=== PATIENT | female | born 1980 | race Caucasian/White ===

== ENCOUNTER 2024-11-08 18:40 | Emergency (ER) | payer OTHER, SELFPAY ==
[2024-11-08 18:43] VITALS: BP 152/99
[2024-11-08 19:17] LABS: % Basophils 0.7 % (0-2); % Eosinophils 3.6 % (0-6); % Immature Granulocytes 0.4 % (0-0.5); % Monocytes 9.5 % (1.7-9.3); % Neutrophils 54.8 % (42.2-75.2); Absolute Basophils 0.1 10^3/uL (0-0.2); Absolute Eosinophils 0.3 10^3/uL (0-0.7); Absolute Lymphocytes 2.6 10^3/uL (1.2-3.4); Absolute Monocytes 0.8 10^3/uL (0.1-0.6); Absolute Neutrophils 4.7 10^3/uL (1.4-6.5); Hematocrit 42.5 % (37.0-47.0); Hemoglobin 14.5 g/dL (12.0-16.0); Mean Corp Hgb Conc. 34.1 g/dL (33.0-37.0); Mean Corpuscular Hgb 29.4 pg (27.0-31.0); Mean Corpuscular Volume 86.2 fL (81.0-99.0); Mean Platelet Volume 9.8 fL (7.4-10.4); Nucleated Red Blood Cells % 0 %; Platelet Count 229 10^3/uL (130-400); Red Blood Cell Count 4.93 10^6/uL (4.20-5.40); White Blood Cell Count 8.5 10^3/uL (4.8-10.8)
[2024-11-08 19:30] LABS: ALT (SGPT) 31 U/L (0-35); AST (SGOT) 24 U/L (14-36); Albumin 4.7 g/dl (3.5-5.0); Alkaline Phosphatase 69 U/L (38-126); Blood Urea Nitrogen 14 mg/dl (7-17); Calcium 9.8 mg/dl (8.4-10.2); Carbon Dioxide 22 mmol/L (22-30); Chloride 107 mmol/L (98-107); Glucose 98 mg/dl (70-99); Potassium 4.7 mmol/L (3.5-5.1); Sodium 137 mmol/L (135-145); Total Bilirubin 0.7 mg/dl (0.2-1.3); Total Protein 7.3 g/dl (6.3-8.2); eGFR > 60.00
[2024-11-08 19:47] LABS: Lipase 64 U/L (23-300)
[2024-11-08 21:54] VITALS: BP 148/76
[2024-11-08 22:27] VITALS: BMI 39.2
[2024-11-08 22:44] LABS: Urine Albumin Negative (Neg - Trace); Urine Bilirubin Negative (Negative); Urine Character Clear (Clear); Urine Color Yellow; Urine Glucose Negative (Negative); Urine Ketone Negative (Negative); Urine Leukocyte Negative (Negative); Urine Nitrite Negative (Negative); Urine Occult Blood Negative (Negative); Urine Specific Gravity 1.015 (<1.030); Urine Urobilinogen Negative (Neg - 1+)
[2024-11-08 22:45] LABS: HCG, Urine Qualitative Screen Negative
[2024-11-08 23:00] VITALS: BP 126/72
[2024-11-09] VITALS: BP 121/65
--- NOTE | 2024-11-09 01:06 | ED.GENMED ---
History of Present Illness
General
Chief Complaint: Abdominal Symptoms
Source: patient
Time Seen by Provider: 11/08/24 22:22
Nursing documentation reviewed up to this point in time: agreed with
History of Present Illness
History of Present Illness:
Patient to ED with complaint of constipation, bloating. Symptoms stated today. States she takes GLP1 and dose was recently increased. SHe is unsure if this is causing her symptoms. Denies fever/chills. Brought self to ED for eval.
Past History
Past History
ED Past Medical History: Other (RA)
Review of Systems
Review of Systems
Allergies reviewed?: Yes
All Other Systems: ROS reviewed and negative except as documented in HPI and ROS
Constitutional: Reports no symptoms
EENT: Reports no symptoms
Respiratory: Reports no symptoms
Cardiac: Reports no symptoms
ABD/GI: Reports abdominal pain and constipated
: Reports no symptoms
Musculoskeletal: Reports no symptoms
Skin: Reports no symptoms
Neurological: Reports no symptoms
Psychiatric: Reports no symptoms
Phy Exam
General Physical Exam
General Presentation: well appearing and no apparent distress
General age: appears stated age
General Skin: warm and dry
General Habitus: normal
General Mental: alert
Cardiovascular Exam
Cardiovascular Exam: regular rate/rhythm and no edema
Pulmonary Exam
Pulmonary Exam: lungs clear and no respiratory distress
Gastrointestinal Exam
Gastrointestinal Exam: normal bowel sounds, soft, no organomegaly, no pulsatile mass, non distended and no cva tenderness
Palpation: generalized: Mild tenderness
Musculoskeletal Exam
Musculoskeletal Exam: full ROM and neuro vasc intact
Skin Exam
Skin Exam: normal color, warm/dry and no rash
Psychiatric Exam
Psychiatric Exam: normal mood/affect
Course
Orders/Labs/Results
Orders:
Orders
11/08/24 18:56
Complete Blood Count/With Diff Urgent
Comprehensive Metabolic Panel Urgent
Lipase Urgent
11/08/24 22:28
Test Result ONCE
11/08/24 22:30
HCG, Urine Qualitative Screen Urgent
Date Specimen was Collected: 11/08/24
Time Specimen was Collected: 22:28
Urinalysis Reflex To Culture Urgent
Date Specimen was Collected: 11/08/24
Time Specimen was Collected: 22:28
11/08/24 22:55
Abdomen Xray - 1 View [CR Abdomen - 1 View] Urgent
Comment:
Reason For Exam: constipation
US Abdomen Complete/Upper Urgent
Comment:
Reason For Exam: upper abd. pain
Abnormal Lab Results
11/08/24
18:56
Absolute Monos (auto) 0.8 H 10^3/uL
(0.1-0.6)
Monocytes % 9.5 H %
(1.7-9.3)
11/08/24 18:56
11/08/24 18:56
Vital Signs
Initial and Last Documented VS:
Initial Vital Signs
Temp Pulse Resp BP Pulse Ox
98.3 F 91 20 152/99 99
11/08/24 18:43 11/08/24 18:43 11/08/24 18:43 11/08/24 18:43 11/08/24 18:43
Last Documented Vital Signs
Temp Pulse Resp BP Pulse Ox
98.3 F 88 20 121/65 100
11/08/24 18:43 11/08/24 21:54 11/08/24 21:54 11/09/24 00:00 11/08/24 23:05
*Radiology
Radiology exam reviewed: radiology read reviewed
*Pulse Oximetry
Patient hypoxic: no
*Critical Care Note
Total Time (30-74mins, 75-104mins- exclusive of procedures): Not Applicable
ED Attending Note
-
Portions of this chart may have been created with voice recognition software.� Occasional wrong word or��sound alike� substitutions may have occurred due to the inherent limitations of voice recognition software.
Discharge Plan
Departure
Patient Disposition: Home (Routine Discharge)
Date of Disposition: 11/09/24
Time of Disposition: 00:05
Patient with high blood pressure during this ER visit?: No
Condition: Good
Covid-19: Not Applicable
Discharge Problem:
Abdominal pain
Instructions: Constipation, Adult (DC), Abdominal Pain
Prescriptions:
New
magnesium citrate [Citrate of Magnesia] Solution
300 ml PO ONCE Qty: 296 0RF
No Action
alprazolam [Xanax] 0.25 mg Tablet
0.25 mg PO DAILY
Enbrel 50 mg/mL (1 mL) Syringe
50 mg SC QWEEK
fexofenadine-pseudoephedrine [Carolina-D 24 Hour] 180-240 mg Tablet Extended Release 24 Hr
1 tab PO DAILY
Zepbound 5 mg/0.5 mL Pen Injector
5 mg SC QWEEK
famotidine [Pepcid] 20 mg Tablet
20 mg PO DAILY
Referrals:
Alexander Zelaya MD [Family Provider] - Follow up in 2-3 days
Activity Restrictions/Additional Instructions:
Return to the emergency department immediately for any changes in/worsening of your symptoms.
Interventions
Interventions:
*Risk Screen - Suicide Last Done: 11/09/24 00:11
*General Assessment Last Done: 11/08/24 18:43
*Neglect/Abuse Screening Last Done: 11/08/24 22:37
*ED- Fall Risk Assessment Last Done: 11/08/24 22:30
*ED COVID-19 Vaccine History Last Done: 11/08/24 22:30
*Nursing Disposition Last Done: 11/09/24 00:11
QI-Zmyaxq-Xkpxuqfdih Assessment Last Done: 11/08/24 22:38
Discharge Date and Time
Discharge Date/Time: 11/09/24 00:14
Print Language: YORUBA
== END 2024-11-09 00:14 | disposition home or self-care (01) ==
LOC: EMR 18:40
PROVIDERS: Emergency Medicine; Nurse Practitioner; EMERGENCY PHYSICIAN Emergency Medicine; FAMILY PHYSICIAN Family Medicine
DX: R10.9 Unspecified abdominal pain (principal); K59.00 Constipation, unspecified
CPT/HCPCS: 99284; 74018; 76700; 80053; 81003; 81025; 83690; 85025

== ENCOUNTER 2024-11-13 03:22 | Observation (INO) | payer OTHER, SELFPAY ==
[2024-11-12 23:04] VITALS: BP 142/94
[2024-11-13 00:09] LABS: Urine Albumin Negative (Neg - Trace); Urine Bilirubin Negative (Negative); Urine Character Clear (Clear); Urine Color Yellow; Urine Glucose Negative (Negative); Urine Ketone Negative (Negative); Urine Leukocyte Negative (Negative); Urine Nitrite Negative (Negative); Urine Occult Blood Negative (Negative); Urine Urobilinogen Negative (Neg - 1+)
--- NOTE | 2024-11-13 00:54 | ED.GENMED ---
History of Present Illness
General
Chief Complaint: Abdominal Pain
Source: patient
Exam Limitations: none
Time Seen by Provider: 11/13/24 00:38
History of Present Illness
History of Present Illness:
See MDM
Past History
Past History
ED Past Medical History: Other (RA)
ED Past Surgical History: None
Social History
Tobacco: Non-smoker
Alcohol: None
Phy Exam
Physical Exam
Physical Exam:
See MDM
Course
Orders/Labs/Results
Orders:
Orders
11/12/24 23:08
IV Insert/Care/Rem.- Treatment PRN
Complete Blood Count/With Diff Urgent
Comprehensive Metabolic Panel Urgent
Lipase Urgent
11/12/24 23:49
Urinalysis Reflex To Culture Urgent
Date Specimen was Collected: 11/12/24
Time Specimen was Collected: 23:09
11/13/24 00:52
0.9% Sodium Chloride 1000 ml [Nss] 1,000 ml IV BOLUS
Ketorolac [Toradol] 30 mg IV NOW STA
Ondansetron Injectable [Zofran] 4 mg IV NOW STA
Abnormal Lab Results
11/13/24
01:06
Absolute Monos (auto) 0.9 H 10^3/uL
(0.1-0.6)
Chloride 108 H mmol/L
(98-107)
11/13/24 01:06
11/13/24 01:06
Vital Signs
Initial and Last Documented VS:
Initial Vital Signs
Temp Pulse Resp BP Pulse Ox
98.7 F 86 20 142/94 99
11/12/24 23:04 11/12/24 23:04 11/12/24 23:04 11/12/24 23:04 11/12/24 23:04
Last Documented Vital Signs
Temp Pulse Resp BP Pulse Ox
98.7 F 65 16 122/60 100
11/12/24 23:04 11/13/24 01:17 11/13/24 01:17 11/13/24 01:17 11/13/24 01:17
MDM/Problems Addressed
Differential Diagnosis Includes:
HPI and MDM Narrative:
44-year-old female presenting for evaluation of persistent abdominal pain. She was just seen in the emergency department a few days ago and diagnosed with gallstones and sludge. Given that there is no acute calculus cholecystitis, she was
discharged home. She was also diagnosed with constipation. It was thought that some of her symptoms could be constipation related. She has been taking laxative with relief. She is now having right upper quadrant pain. Will repeat blood work and
discussed case with surgery
Physical exam
General: Well appearing and non-toxic
HEENT: protecting airway
Neck: appears supple
CV: No evidence of cyanosis
Resp: No accessory muscle use
Abd: Non-distended. Right upper quadrant tenderness
Extremities: No deformities
Neuro: alert
Psych: Normal affect
Skin: Intact
Problems Addressed including Acute and Chronic Conditions affecting care:
1. Symptomatic cholelithiasis versus acute calculus cholecystitis
Acuity: acute
Prognosis: stable
Details: Will repeat blood work discussed case with general surgery.
Updates
No leukocytosis. LFTs normal. Given persistent symptoms, case discussed with general surgery and will admit for further evaluation
Differential Diagnosis (but not limited to): Acute calculus cholecystitis, symptomatic cholelithiasis
Testing considered: Repeat ultrasound
Drug therapy (if applicable): OTC meds, please see d/c instruction regarding Rx drugs
Amount and/or Complexity of Data Reviewed
Clinical info obtained from: Patient
External data reviewed: Recent right upper quadrant ultrasound showing gallstones and sludge
Labs I independently reviewed (but not limited to): LFTs normal
Radiology: N/A
Pulse Ox: not hypoxic
EKG independently reviewed: N/A
Steam Box Tender: N/A
Critical Care: N/A
Risk of Complication:
Social Determinants of health: Good social support
Discussed with other providers: General Surgeon
Escalation of Care includes Admit/Obs: Given concern for symptomatic cholelithiasis, will admit for further evaluation
Occasional wrong word or 'sound a like' substitutions may have occurred due to the inherent limitations of voice recognition software. Read the chart carefully and recognize, using context, where substitutions have occurred.
*Critical Care Note
Total Time (30-74mins, 75-104mins- exclusive of procedures): Not Applicable
ED Attending Note
-
Portions of this chart may have been created with voice recognition software.� Occasional wrong word or��sound alike� substitutions may have occurred due to the inherent limitations of voice recognition software.
Discharge Plan
Departure
Patient Disposition: Admit
Date of Disposition: 11/13/24
Time of Disposition: 02:12
Admit to: Med/Surg
Presentation/result/management discussed w/ accepting MD/DO: General surgeon
Discharge Problem:
Symptomatic cholelithiasis
Prescriptions:
No Action
alprazolam [Xanax] 0.25 mg Tablet
0.25 mg PO DAILY
Enbrel 50 mg/mL (1 mL) Syringe
50 mg SC QWEEK
fexofenadine-pseudoephedrine [Carolina-D 24 Hour] 180-240 mg Tablet Extended Release 24 Hr
1 tab PO DAILY
Zepbound 5 mg/0.5 mL Pen Injector
5 mg SC QWEEK
famotidine [Pepcid] 20 mg Tablet
20 mg PO DAILY
magnesium citrate [Citrate of Magnesia] Solution
300 ml PO ONCE Qty: 296 0RF
Referrals:
Alexander Zelaya MD [Family Provider] -
Interventions
Interventions:
*Risk Screen - Suicide Last Done: 11/12/24 23:04
*General Assessment Last Done: 11/13/24 01:11
*Neglect/Abuse Screening Last Done: 11/13/24 01:11
*ED- Fall Risk Assessment Last Done: 11/12/24 23:04
*ED COVID-19 Vaccine History Last Done: 11/12/24 23:04
QH-Dclivo-Iyyueucocd Assessment Last Done: 11/13/24 01:14
Discharge Date and Time
Print Language: KAZAKH
[2024-11-13] MEDS: ZOFRAN 4 MG IV (01:08)
[2024-11-13] MEDS: NSS 1000 IV ×2 (01:08→05:46)
[2024-11-13] MEDS: TORADOL 30 MG IV (01:09)
[2024-11-13 01:11] VITALS: BMI 40.2
[2024-11-13 01:17] VITALS: BP 122/60
[2024-11-13 01:43] LABS: % Basophils 0.8 % (0-2); % Eosinophils 2.9 % (0-6); % Immature Granulocytes 0.4 % (0-0.5); % Lymphocytes 25.9 % (20.5-51.1); % Monocytes 8.3 % (1.7-9.3); % Neutrophils 61.7 % (42.2-75.2); Absolute Basophils 0.1 10^3/uL (0-0.2); Absolute Eosinophils 0.3 10^3/uL (0-0.7); Absolute Lymphocytes 2.7 10^3/uL (1.2-3.4); Absolute Monocytes 0.9 10^3/uL (0.1-0.6); Absolute Neutrophils 6.5 10^3/uL (1.4-6.5); Hematocrit 41.7 % (37.0-47.0); Hemoglobin 14.3 g/dL (12.0-16.0); Mean Corp Hgb Conc. 34.3 g/dL (33.0-37.0); Mean Corpuscular Volume 84.6 fL (81.0-99.0); Mean Platelet Volume 10.1 fL (7.4-10.4); Nucleated Red Blood Cells % 0 %; Platelet Count 221 10^3/uL (130-400); Red Blood Cell Count 4.93 10^6/uL (4.20-5.40); Red Cell Dist. Width 12.9 % (11.5-14.5); White Blood Cell Count 10.5 10^3/uL (4.8-10.8)
[2024-11-13 01:54] LABS: ALT (SGPT) 26 U/L (0-35); AST (SGOT) 25 U/L (14-36); Albumin 3.9 g/dl (3.5-5.0); Alkaline Phosphatase 56 U/L (38-126); Blood Urea Nitrogen 12 mg/dl (7-17); Calcium 9.6 mg/dl (8.4-10.2); Carbon Dioxide 26 mmol/L (22-30); Chloride 108 mmol/L (98-107); Estimated Creatinine Clearance > 125 ml/min; Glucose 88 mg/dl (70-99); Lipase 70 U/L (23-300); Potassium 4.8 mmol/L (3.5-5.1); Sodium 141 mmol/L (135-145); Total Bilirubin 0.7 mg/dl (0.2-1.3); Total Protein 6.7 g/dl (6.3-8.2); eGFR > 60.00
--- NOTE | 2024-11-13 03:04 | HPS.HSE ---
Addendum entered and electronically signed by Patric Aranda MD 11/13/24 16:48:
I saw and examined the patient.
The SOCIAL INSURANCE ANALYST's note was reviewed and I agree with the note.
Comment:
History, vitals, labs, imaging reviewed. Patient seen and examined.
44 yo F with RUQ abdominal pain and complaints of constipation (?due to Zepbound). Workup in ER revealed cholelithiasis but no cholecystitis. Mild RUQ tenderness on exam. Labs unremarkable. Recommended CT to further assess her abdomen. Of note,
CT has subsequently come back confirming cholelithiasis and fibroids. No significant fecal burden noted. Diet advancement ordered in anticipation of discharge. Elective cholecystectomy at some point is an option as this may have been biliary
colic. Follow up with gen surg will be arranged.
Addendum entered and electronically signed by CHARLES Traore 11/13/24 03:29:
For constipation: bowel regime added
Original Note:
Family Physician
-
Family Physician: Alexander Zelaya MD
Chief Complaint
-
abd pain (RUQ)
History of Present Illness
44-year-old female with hx RA presenting for evaluation of persistent abdominal pain (RUQ primarily). Pain started last fri. Initially thought it was just constipation but despite taking laxatives pain continued and was seen in the emergency
department friday night and diagnosed with gallstones and sludge. Given that there is no acute calculus cholecystitis, she was discharged home. She said the discomfort never truly went away but was tolerable until this evening she had chicken
broth and crackers. Pain became worse after this. She is now having right upper quadrant pain.
Of note pt has been on zepbound since august for weight loss and RA symptoms (which has helped greatly). We did discuss that issues with Gallbladder and constipation can be caused by this medication. She is aware.
Still with no significant BM over this last week,
abd ultrasound from 11/08/24
IMPRESSION: Gallbladder stones and sludge including stone in the vicinity of the gallbladder neck. No gallbladder wall thickening or findings to suggest intrahepatic biliary tract dilatation. Negative sonographic Portillo's sign. Borderline enlarged
common bile duct.
Labs in ED unremarkable. No WBC. UA clean.
Pain currently controlled
Medical History
Past Medical History
Past Medical History: Reports GERD and Other (RA)
Past Surgical History: Reports None
Social History
Tobacco: Non-smoker
Alcohol: None
Drug: None
Personal:
Living: With Family
Employment: Employed
Family History
Family History: Not pertinent
Allergies / Home Medications
Allergies reflects when Allergies were last updated in [facility].
Home Medications with original date entered in [facility]
Allergy/Medication List:
Allergies
Allergy/AdvReac Type Severity Reaction Status Date / Time
No Known Allergies Allergy Verified 11/12/24 23:03
Home Medications
alprazolam 0.25 mg tablet (Xanax) 0.5 mg PO DAILY 11/08/24
etanercept 50 mg/mL (1 mL) subcutaneous syringe (Enbrel) 50 mg SC QWEEK 11/08/24
famotidine 20 mg tablet (Pepcid) 20 mg PO DAILY 11/08/24
fexofenadine-pseudoephedrine ER 180 mg-240 mg tablet,ext.release 24 hr (Carolina-D 24 Hour) 1 tab PO DAILY 11/08/24
tirzepatide (weight loss) 5 mg/0.5 mL subcutaneous pen injector (Zepbound) 2.5 mg SC QWEEK 11/08/24
Lactobacillus acidophilus 10 billion cell capsule (Probiotic) 10,000 mmu cells PO DAILY 11/13/24
ibuprofen 400 mg tablet 400 mg PO Q6H PRN pain 11/13/24
multivitamin 1 tab PO DAILY 11/13/24
Review of Systems
-
History Source: Patient
A 12 point ROS was completed and negative except as noted: Yes
Constitutional: Reports No Symptoms
EENT: Reports No Symptoms
Respiratory: Reports No Symptoms
Cardiac: Reports No Symptoms
Abdomen/GI: Reports Abdominal Pain (diffuse discomfort with bloating but pain more centralized to RUQ currently), Nausea and Constipated (no significant BM for approx a week)
: Reports No Symptoms
Musculoskeletal: Reports No Symptoms
Skin: Reports No Symptoms
Neurological: Reports No Symptoms
Endocrine: Reports No Symptoms
Hematologic/Lymphatic: Reports No Symptoms
Psych: Reports No Symptoms
Physical Exam
Vital Signs
Vital Signs
Temp Pulse Resp BP Pulse Ox
98.7 F 65 16 122/60 100
11/12/24 23:04 11/13/24 01:17 11/13/24 01:17 11/13/24 01:17 11/13/24 01:17
Physical Exam
General: Well Developed, Well Nourished, No Apparent Distress and Comfortable
HEENT: NormoCephalic, Anicteric, Moist mucous membranes and Atraumatic
Respiratory: Clear and Non Labored Respirations
Cardiac: S1/S2 and Regular Rhythm
Breast: Deferred by me
GI: Soft, Tender (RUQ) and Distended (mild)
Rectal: Deferred by Provider
Genito-urinary: Deferred by me
Musculoskeletal: No Clubbing and No Cyanosis
Skin: Warm and Dry
Neuro: Awake, AO x 3 and No Motor Deficits
Hematologic/Lymphatic: No Lymphadenopathy
Psych: Calm
Laboratory Results
-
11/13/24 01:06
11/13/24 01:06
Laboratory Results
Total Bilirubin 0.7 mg/dl (0.2-1.3) 11/13/24 01:06
AST 25 U/L (14-36) 11/13/24 01:06
ALT 26 U/L (0-35) 11/13/24 01:06
Alkaline Phosphatase 56 U/L (38-126) 11/13/24 01:06
Lipase 70 U/L (23-300) 11/13/24 01:06
Data Reviewed
-
Ultrasound: Discussed with Physician
Impression/Plan
-
IMPRESSION:
symptomatic cholelithiasis
PLAN:
Admit to service of Dr Aranda
med surg obs
#cholelithiasis
-NPO x meds
-ivf for gently hydration
-pain control: toradol, tylenol, dilaudid
- zofran prn
- no abx at this time
DVT proph: scd
Full code
Questions answered to the best of my ability
[2024-11-13 03:22] VITALS: BMI 40.2
[2024-11-13 03:43] VITALS: BP 109/53
[2024-11-13] MEDS: SENOKOT-S 2 TABLET PO (06:15)
[2024-11-13] MEDS: XANAX 0.5 MG PO (07:34)
[2024-11-13] MEDS: PEPCID 20 MG PO (07:34)
[2024-11-13] MEDS: VISBIOME 1 CAP PO (07:34)
[2024-11-13] MEDS: DILAUDID 0.5 MG IV ×3 (07:35→15:07)
--- NOTE | 2024-11-13 10:16 | CM ---
Initial assessment completed bedside in ED
Outpatient Observation Status Notice explained; form signed @ 1010; copy provided
Pharmacy verified: [facility] @ [address], [place], [place]
Lives with spouse; multilevel home; 2 steps to enter 12-14 steps to 2nd floor; 10 steps down to basement; powder room 1st floor; 2nd floor bathroom has walk-in shower
PLOF: reports she is independent with ambulation, stairs, and ADLs; drives; works editor department
NO DME
NO SNF or Home Health utilization history
Spouse will transport home
Plan: to be determined pending hospital course; CM will monitor for discharge needs
[2024-11-13] MEDS: OMNIPAQUE 50 ML PO (13:19)
[2024-11-13 14:00] VITALS: BP 120/80
--- NOTE | 2024-11-13 14:26 | CON.GI ---
Consultation
-
Date/Time Consultation Requested: 11/13/24
Date/Time Consultation Performed: 11/13/24
Requesting Provider: Yeni Thomas
Performing Provider: Kinga Centeno
Reason for Consultation: Abdominal pain, constipation
Medical History
Chief Complaint / HPI
Chief Complaint: abdominal pain, constipation
History of Present Illness:
Rivka Barboza is a 44-year-old female with pmhx RA admitted with complaints of persistent RUQ abdominal pain. She was seen in the ER last friday, diagnosed with cholelithiasis and constipation and discharged home. She was taking some OTC
laxative, had one small BM with minimal relief, additionally tried miralax without improvement. She feels the gas-like discomfort has improved but still feels bloated. When she lays down, feels the discomfort in a band like distribution in her upper
abdomen. She separately feels RUQ abdominal pain, though, this has also improved. Initially, she felt the constipation was the cause of her RUQ pain, now feels like they are separate problems. Of note, she started treatment with zepbound in August,
she knows the side-effects and skipped her last dose, which would have been friday. Prior to starting the medication, denies any issues moving her bowels. No prior colonoscopy. Denies family history of CRC.
Abdominal US 11/08/24: IMPRESSION: Gallbladder stones and sludge including stone in the vicinity of the gallbladder neck. No gallbladder wall thickening or findings to suggest intrahepatic biliary tract dilatation. Negative sonographic Portillo's sign.
Borderline enlarged common bile duct.
Abdominal xray 11/08/24: Small volume colonic stool is seen.
Past Medical History
Past Medical History: Other (RA)
Past Surgical History: None
Social History
Tobacco: Non-Smoker
Alcohol: None
Drug: None
Personal:
Living: With Family
Family History
Family History: Reviewed & Not Pertinent
Allergies / Home Medications
Allergy/AdvReac Type Severity Reaction Status Date / Time
No Known Allergies Allergy Verified 11/12/24 23:03
�Medication �Instructions �Recorded
alprazolam 0.25 mg tablet (Xanax) 0.5 mg PO DAILY 11/08/24
etanercept 50 mg/mL (1 mL) 50 mg SC QWEEK 11/08/24
subcutaneous syringe (Enbrel)
famotidine 20 mg tablet (Pepcid) 20 mg PO DAILY 11/08/24
fexofenadine-pseudoephedrine ER 1 tab PO DAILY 11/08/24
180 mg-240 mg tablet,ext.release
24 hr (Carolina-D 24 Hour)
tirzepatide (weight loss) 5 mg/0.5 2.5 mg SC QWEEK 11/08/24
mL subcutaneous pen injector
(Zepbound)
Lactobacillus acidophilus 10 10,000 mmu cells PO DAILY 11/13/24
billion cell capsule (Probiotic)
ibuprofen 400 mg tablet 400 mg PO Q6H PRN pain 11/13/24
multivitamin 1 tab PO DAILY 11/13/24
Review of Systems
-
History Source: Patient
All other systems: A 12 pt ROS was Negative except as stated above in HPI
Vital Signs
Temp Pulse Resp BP Pulse Ox
97.9 F 68 18 120/80 100
11/13/24 13:55 11/13/24 03:49 11/13/24 03:49 11/13/24 14:00 11/13/24 13:55
Physical Exam
Exam
General: Well Developed, Well Nourished and No Apparent Distress
GI: Soft, Non Tender (mildly TTP in LLQ, no rebound or guarding; nondistended) and Normal Bowel Sounds
Results
WBC 10.5 10^3/uL (4.8-10.8) 11/13/24 01:06
Hgb 14.3 g/dL (12.0-16.0) 11/13/24 01:06
Hct 41.7 % (37.0-47.0) 11/13/24 01:06
MCV 84.6 fL (81.0-99.0) 11/13/24 01:06
Plt Count 221 10^3/uL (130-400) 11/13/24 01:06
Absolute Neuts (auto) 6.5 10^3/uL (1.4-6.5) 11/13/24 01:06
Sodium 141 mmol/L (135-145) 11/13/24 01:06
Potassium 4.8 mmol/L (3.5-5.1) 11/13/24 01:06
Chloride 108 mmol/L (98-107) H 11/13/24 01:06
Carbon Dioxide 26 mmol/L (22-30) 11/13/24 01:06
BUN 12 mg/dl (7-17) 11/13/24 01:06
Creatinine 0.6 mg/dL (0.6-1.0) 11/13/24 01:06
Calcium 9.6 mg/dl (8.4-10.2) 11/13/24 01:06
Total Bilirubin 0.7 mg/dl (0.2-1.3) 11/13/24 01:06
AST 25 U/L (14-36) 11/13/24 01:06
ALT 26 U/L (0-35) 11/13/24 01:06
Alkaline Phosphatase 56 U/L (38-126) 11/13/24 01:06
Lipase 70 U/L (23-300) 11/13/24 01:06
Diagnostic Image Results:
Prior GI Procedures:
EGD:
Colonoscopy:
Assessment / Plan
-
44 y.o. female w/ RA recently started on zepbound presents with persistent abdominal pain found to have cholelithiasis and constipation.
I am unsure if all of the patient's pain is 2/2 underlying stool burden. There is no evidence of choelcystitis, but she has gallstones and on abdominal US on 11/08, there was a stone in the vicinity of the GB neck. Given her RUQ abdominal pain has
improved since that ER visit, its possible it passed.
We discussed several bowel regimen options and I feel like giving her a bowel prep will be most effective. She would like to do this at home. I discussed with her that starting a daily regimen the day after she performed the prep will help to her
regular and avoid back up of stool, leading to her becoming so uncomfortable. If she is effective in getting all cleaned out and she continues to have abdominal discomfort, then I think her pain is primarily 2/2 symptomatic cholelithiasis. She is
planning to have a CT performed today to rule out any other pathology that may be contributing to her symptoms.
Patient declined any additional laxatives while in the hospital, she is hoping to be discharged later today, pending the results of her CT Scan. She requested I put directions on bowel prep in her d/c paperwork. I will f/u CT scan to ensure no
abnormal findings, otherwise, she can follow-up with GI as an outpatient fo management of her constipation as well as for CRC screening as she is due now.
Data Reviewed
-
Ultrasound: Report Reviewed by me
-
-
Thank you for consultation and allowing me to participate in the patient's care. Please call the rail transportation operator GI physician during the after hours with any questions or concerns.
[2024-11-13 14:48] LABS: HCG, Serum Qualitative Screen Negative
--- NOTE | 2024-11-13 15:13 | PTCARENOTE ---
Assumed care of pt at aprox 1200. Vitals stable. Admission done. Pt just finished Ct scan prep will call ct scan. IV Dilaudid given for abd pain.
--- NOTE | 2024-11-13 15:40 | SUR.OPER ---
Pt taken over to CT scan by account technician.
--- NOTE | 2024-11-13 16:30 | PTCARENOTE ---
report tubed to 4 west and call placed.
--- NOTE | 2024-11-13 17:00 | PTCARENOTE ---
4/5- Patient transferred and oriented to unit without issue. AAOX3; fully Independent; Skin CDI; MedSurg. Patient denies any current needs.
[2024-11-13 17:11] VITALS: BP 105/56
--- NOTE | 2024-11-13 18:45 | PTCARENOTE ---
4/5- Patient approached nursing station aggressively stating, 'I called for you an hour ago. Then I called and was given dirty silverware. I'm leaving now. My is on his way. Get this IV out of my arm. You people are keeping me here for
no reason. I saw a doctor for 3 fucking minutes, and no surgeon. So why the fuck am I here? I see 8 fucking people sitting at this desk.' Attempted to de-escalate patient, attempted to apologize for the silverware and her feelings about her plan
of care. This RN was interrupted, and patient stated, 'I just want to leave now. This is fucking ridiculous.' Patient then walked away. Notified House Provider of patient's escalation and possible AMA discharge. During this, patient's
arrived on floor. He stated, 'hi, I am Rivka's . We want the colonoscopy prep, the pain medications and the CT scan results. And we're leaving.' Advised there is no colonoscopy prep or orders, nor can we discharge with pain medications
due to no discharge orders. Advised I can print the CT results. He said, 'we want it now. I see you people just sitting here.' Advised this is shift change. All was witnessed by RN Yun, MAHENDRA Ivy, MAHENDRA Castro, this RN, PCT Yuni and PCT
Belinda. We then called Mitchel Joe. House Provider Radhika came up and was able to get patient to sign AMA form without issue.
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
--- NOTE | 2024-11-14 08:55 | W.DCSUMMARY ---
Discharge Summary
Discharge Data
Date of Admission: 11/13/24
Date of Discharge: 11/13/24
-
Pending Results: No
Hospital Course
44 yo female who presented with generalized abdominal pain with complaints of constipation and increased pain with meals. She was evaluated by gastroenterology with bowel regimen recommendations made. She declined laxatives while inpatient. Imaging
with gallstones present but without cholecystitis and no RUQ tenderness on exam. Biliary colic suspected. Patient was ordered a PO challenge with plan to discharge if tolerating for continued outpatient follow up vs possible cholecystectomy during
her stay if RUQ pain recurred. She reportedly became agitated and left AMA later that evening. Called patient today with Dr. Aranda. There was no answer, voicemail left with recommendations and patient provided with number for general surgery
office.
Discharge Plan
-
Patient Disposition: Against Medical Advice
Discharge Diagnosis/Procedures: Abdominal pain, gallstones
Condition: Good
Diet: Low Fat
Driving Restrictions: As prior to admission
Activity Restrictions/Additional Instructions:
Miralax Purge (Bowel Cleanse):
1.��� Purchase over the counter:
a.���� Dulcolax laxative tablets
b.���� Miralax bottle (238 grams)
c.����� 64 oz bottle of Gatorade (alternatively, crystal light)
2.��� Day of Clean Out:
a.���� Minimize eating, as the more you eat, the harder it will be to clean out your bowels! Liquids are the best, such as broth, clear soups, jello, popsicles, clear juices or black coffee. The clean out typically takes 2-4 hours total.
b.���� Take 4 Dulcolax laxative tablets; you may experience cramps as this medicine makes your bowels contract
c.����� Mix the 238 gram bottle of Miralax powder into a 64 oz bottle of Gatorade (or crystal light/water). Mix or shake it until the powder completely dissolves
d.���� Drink 8 ounces of this mixture every 15-20 minutes until you have finished ALL of it
e.���� If you feel like you are going to vomit, slow down and pause before the next dose
f.������ Stay home for the next few hours as you will have multiple bowel movements with this clean out. There may be a delay in the start of the bowel movements if you have a significant amount of stool in your colon to start with, but, be patient!
It will come out eventually!
3.��� Day AFTER Bowel Purge:
a.���� Start taking your everyday laxative, such as Miralax or Magnesium and continue to take it every day, as instructed��������
Instructions: Constipation in adults
Referrals:
Alexander Zelaya MD [Family Provider] -
Clement Strange MD [Active] -
Karen Centeno DO [Active] - in three to four weeks
Prescriptions:
Continued
alprazolam [Xanax] 0.25 mg Tablet
0.5 mg PO DAILY
Enbrel 50 mg/mL (1 mL) Syringe
50 mg SC QWEEK
fexofenadine-pseudoephedrine [[place]-D 24 Hour] 180-240 mg Tablet Extended Release 24 Hr
1 tab PO DAILY
famotidine [Pepcid] 20 mg Tablet
20 mg PO DAILY
multivitamin Tablet
1 tab PO DAILY
ibuprofen 400 mg Tablet
400 mg PO Q6H PRN (Reason: pain)
Probiotic 10 billion cell Capsule
10,000 mmu cells PO DAILY
Discontinued
Zepbound 5 mg/0.5 mL Pen Injector
2.5 mg SC QWEEK
Discharge Date and Time
Discharge Date/Time: 11/13/24 19:17
Print Language: PERSIAN
--- NOTE | 2024-11-14 08:59 | W.PN.UPDATE ---
Update Note
Progress Note Update
Patient apparently left AMA yesterday as noted above. I left a VM on her phone today relating CT results and my conclusion that she likely has biliary colic and that elective gallbladder surgery is a consideration. On the message I suggested
calling the general surgery group here on Friday to schedule a visit. Suggested that she call me back through the answering service if any questions.
== END 2024-11-13 19:17 | disposition left against medical advice (07) ==
LOC: 4 WEST ACU 03:22
PROVIDERS: ADMITTING PHYSICIAN Surgery; CONSULT PHYSICIAN Internal Medicine; EMERGENCY PHYSICIAN Student in an Organized Health Care Education/Training Program; FAMILY PHYSICIAN Family Medicine
DX: K80.20 Calculus of gallbladder without cholecystitis without obstruction (principal); R10.9 Unspecified abdominal pain
CPT/HCPCS: 74177; 80053; 81003; 83690; 84703; 85025; 96361; 96374; 96375; 99284; G0378; Q9967